=== PATIENT | female | born 1980 | race Hispanic/Latino ===

== ENCOUNTER 2017-01-17 02:05 | Emergency (ER) | payer OTHER ==
[~2017-01-17] VITALS: Ht 160 cm; Wt 95.3 kg
[~2017-01-17 02:05] MED LIST: AFRIN PUMPMIST15 ML NASB; ALBUTEROL1.25 MG/3 INH; METFORMIN HCL500 MG PO; NASONEX0.05 MG/Ac NASB; Nebulizer machine; PREDNISONE 20MG20 MG PO; ROBITUSSIN W/CO10 ML PO; TESSALON PERLE100 MG PO; ZOFRAN ODT4 MG SL; [UNRECOGNIZED DRUG - CODE] SC
[2017-01-17 02:47] LABS: ABSOLUTE BASOPHIL COUNT 0.1 /CUMM (0.0-0.2); ABSOLUTE EOSINOPHIL COUNT 0.3 /CUMM (0.0-0.7); ABSOLUTE GRANULOCYTE CT 4.9 /CUMM (1.4-6.5); ABSOLUTE LYMPH COUNT 1.7 /CUMM (1.2-3.4); ABSOLUTE MONOCYTE COUNT 0.5 /CUMM (0.10-0.60); BASOPHIL % 1.1 % (0.0-2.0); EOSINOPHIL % 4.1 % (0-5); GRANULOCYTE % 65.6 % (42.2-75.2); HEMATOCRIT 35.7 % (37-47); MEAN CORPUSCULAR HGB 26.8 PG (27.0-31.0); MEAN CORPUSCULAR HGB CONC 33.1 G/DL (33.0-37.0); MEAN PLATELET VOLUME 8.6 FL (7.4-10.4); PLATELET COUNT 228 /CUMM (130-400); RBC DISTRIBUTION WIDTH 14.5 % (11.5-14.5); RED BLOOD CELL CT 4.41 /CUMM (4.20-5.40); WHITE BLOOD CELL COUNT 7.4 /CUMM (4.8-10.8)
[2017-01-17] MEDS ORDERED: CIPRODEX OTIC7.5 ML OT (02:47)
[2017-01-17] MEDS ORDERED: CIPROFLOXACIN500 M2 PO (02:47)
[2017-01-17] MEDS ORDERED: DICYCLOMINE HCL20 M1 PO (02:48)
[2017-01-17] MEDS ORDERED: LISINOPRIL5 M1 PO (02:48)
[2017-01-17] MEDS ORDERED: PANTOPRAZOLE SO40 M1 PO (02:49)
[2017-01-17] MEDS ORDERED: LYRICA100 M1 PO (02:50)
--- NOTE | 2017-01-17 03:04 | ED DYSPNEA/ASTHMA COMPLAINT ---
History of Present Illness General Chief Complaint: Dyspnea (COPD, CHF, Other) Stated Complaint: DIFF [id number]% ON RM AIR AT [employer] Source: patient, family, old records Exam Limitations: no limitations Vital Signs & Intake/Output Vital Signs & Intake/Output Vital Signs Date Time Temp Pulse Resp B/P Pulse O2 O2 Flow FiO2 Ox Delivery Rate 01/17 0237 99 Room Air 01/17 0213 98.1 128 18 148/85 99 Room Air Allergies Coded Allergies: latex (Severe, HIVES 01/17/17) insulin glargine (From Lantus) (UNKNOWN 01/17/17) Reconcile Medications Albuterol Sulfate (Albuterol Sulfate Nebulizer Soln) 1.25 MG/3 ML CHARY 1 UNIT INH Q4P PRN shortness of breath Benzonatate (Tessalon Perle) 100 MG SGL 1 CAP PO TID PRN COUGH Ciprofloxacin HCl 500 MG TABLET 1 TAB PO BID INFECTION (Reported) Ciprofloxacin HCl/Dexameth (Ciprodex Otic Suspension) 0.3 %-0.1 % DROPS.SUSP 4 GTT OT BID INFECTION (Reported) Dicyclomine HCl 20 MG TABLET 0.5 TAB PO TID ACID REFLUX (Reported) Humulin 70-30 (Humulin 70-30 Vial) 100 UNIT/ML (70-30) VIAL 30 UNITS SC BID DIABETES (Reported) Lisinopril 5 MG TABLET 1 TAB PO DAILY HEART HEALTH (Reported) Metformin Hydrochloride (Metformin HCl) 500 MG TAB 1 TAB PO BID DIABETES ( Reported) Mometasone Furoate (Nasonex) 0.05 MG/Actuation SPR 2 SPRAY NASB DAILY allergy [Nebulizer machine] Use as directed Ondansetron (Zofran Odt) 4 MG TAB.RAPDIS 1 TAB SL Q8HR PRN NAUSEA OXYMETAZOLINE HCL (Afrin) 15 ML SPR 2 SPRAY NASB BID sinusitis Use for 3 days Pantoprazole Sodium 40 MG TABLET.DR 1 TAB PO DAILY ACID REFLUX (Reported) Prednisone 20 MG TAB 1 TAB PO BID BRONCHOSPASM Pregabalin (Lyrica) 100 MG CAPSULE 1 CAP PO BID PAIN (Reported) Robitussin AC (Guaifenesin-Codeine Syrup) 200 MG-20 MG/10 ML LIQUID 10 ML PO Q6HR PRN COUGH Triage Note: PT TO ED C/O DIFF BREATHING AND UNPRODUCTIVE COUGH SINCE YESTERDAY. O2 SAT 99% ON RA. LUNGS CTA. DR MONTENEGRO IN TO EVAL PT ON PATIENT ARRIVAL TO ROOM. RR 26. TACHY AT 128. PT VERY ANXIOUS. Triage Nurses Notes Reviewed? yes Onset: yesterday Duration: day(s):, constant, continues in ED Timing: recent history Severity: moderate Activities at Onset: rest Prior Episodes/Possible Cause: illness exposure Modifying Factors: Improves With: rest. Worsens With: movement. Associated Symptoms: anxiety, cough, weakness LMP (ages 10-50): unknown : No Patient currently breastfeeds: No HPI: 1 week Prior to admission patient was treated for ear infection with amoxicillin and switched to Zithromax. 1 day prior to admission patient complains of progressive nonproductive cough shortness of breath weakness with chest tightness. She denies fever chills nausea vomiting diarrhea abdominal pain headache dysuria rash bleeding. Past History Travel History Traveled to [place] past 21 day No Medical History Any Pertinent Medical History? see below for history Respiratory: asthma Endocrine: diabetes Surgical History Surgical History: non-contributory Psychosocial History What is your primary language Azeri Tobacco Use: Never used Family History Hx Contributory? No Review of Systems Review of Systems Constitutional: Reports: see HPI, malaise, weakness. EENTM: Reports: see HPI, ear pain. Respiratory: Reports: see HPI, cough, short of breath, wheezing. Cardiovascular: Reports: see HPI, chest pain. GI: Reports: no symptoms. Genitourinary: Reports: no symptoms. Musculoskeletal: Reports: no symptoms. Skin: Reports: no symptoms. Neurological/Psychological: Reports: no symptoms. Hematologic/Endocrine: Reports: no symptoms. Immunologic/Allergic: Reports: no symptoms. All Other Systems: Reviewed and Negative Physical Exam Physical Exam General Appearance: well developed/nourished, alert, awake, anxious, moderate distress, obese Head: atraumatic, normal appearance Eyes: Bilateral: normal appearance, PERRL, EOMI. Ears, Nose, Throat: normal pharynx, normal ENT inspection Neck: normal inspection, supple, full range of motion Respiratory: chest non-tender, quiet respiration, decreased breath sounds, respiratory distress Cardiovascular: regular rate/rhythm, normal peripheral pulses, norml femoral pulses equa Peripheral Pulses: 4+ carotid (R), 4+ carotid (L) Gastrointestinal: normal bowel sounds, soft, non-tender, no organomegaly Extremities: normal inspection, normal capillary refill, normal range of motion, no edema Neurologic/Psych: no motor/sensory deficits, awake, alert, oriented x 3, normal gait, striker out II-XII nml as tested Skin: intact, normal color, warm/dry Lymphatic: no anterior cervical shahzad Core Measures ACS in differential dx? No Severe Sepsis Present: No Septic Shock Present: No Progress Differential Diagnosis: asthma, bronchitis, COPD, pneumonia Plan of Care: Orders Procedure Date/time Status URINALYSIS 01/18 316 Complete Add-on Test (ER Only) 01/17 237 Active Add-on Test (ER Only) 01/18 236 Active D-DIMER 01/17 226 Complete EKG 01/17 226 Active COMPREHENSIVE METABOLIC PANEL 01/17 217 Complete CBC WITHOUT DIFFERENTIAL 01/17 217 Complete ACETONE 01/17 217 Complete TROPONIN LEVEL 01/17 215 Complete HUMAN BETA HCG SCREEN 01/17 215 Complete Laboratory Tests 01/17/17309: Urine Color STRAW, Urine Clarity CLEAR, Urine pH 7.5, Ur Specific [place] 1.015, Urine Protein NEG, Urine Ketones NEG, Urine Nitrite NEG, Urine Bilirubin NEG, Urine Urobilinogen 0.2, Ur Leukocyte Esterase NEG, Ur Microscopic EXAM NOT REQUIRED, Urine Hemoglobin NEG, Urine Glucose >=1000 H 01/17/17225: Troponin I Cancelled 01/17/17214: Anion Gap 12, Estimated GFR > 60, BUN/Creatinine Ratio 8.8, Glucose 240 H, Calcium 9.5, Total Bilirubin 0.5, AST 19, ALT 34, Alkaline Phosphatase 80, Troponin I < 0.01, Total Protein 7.3, Albumin 4.1, Globulin 3.2, Albumin/ Globulin Ratio 1.3, Total Beta HCG NEGATIVE, D-Dimer < 200, CBC w Diff NO MAN DIFF REQ, RBC 4.41, MCV 81.0, MCH 26.8 L, RDW 14.5, MPV 8.6, Gran % 65.6, Lymphocytes % 22.7, Monocytes % 6.5, Eosinophils % 4.1, Basophils % 1.1, Absolute Granulocytes 4.9, Absolute Lymphocytes 1.7, Absolute Monocytes 0.5, Absolute Eosinophils 0.3, Absolute Basophils 0.1, PUBS MCHC 33.1, Acetone Level NEGATIVE Diagnostic Imaging: Viewed by Me: Radiology Read. Discussed w/RAD: Radiology Read. Initial ED EKG: normal axis, normal intervals, normal p-waves, normal QRS complex, normal sinus rhythm, nonspecific ST T wave chg Rhythm Strip: sinus tachycardia Departure Departure Time of Disposition: 419 Disposition: HOME OR SELF CARE Condition: Stable Clinical Impression Primary Impression: Asthmatic bronchitis with acute exacerbation Referrals: KISHAN SINGH DO (PCP/Family) Departure Forms: Customer Survey General Discharge Information Prescriptions: Current Visit Scripts Prednisone 1 TAB PO BID #10 TAB Oxymetazoline HCl (Afrin) 2 SPRAY NASB BID #30 ML Benzonatate (Tessalon Perle) 1 CAP PO TID PRN cough #21 CAP Albuterol Sulfate 1 Vial INH/CHARY Q4P PRN wheezing #50 Vial Ref 5 Albuterol Sulfate (Proair Hfa) 2-4 PUF INH Q4-6 PRN PRN shortness of breath #1 INHAL Critical Care Note Critical Care Note Critical Care Time: non-applicable
--- NOTE | 2017-01-17 04:15 | RADIOLOGY REPORT ---
EXAMINATION: XR PORTABLE CHEST CLINICAL INFORMATION: Cough and shortness of breath. COMPARISON: Chest radiograph 03/07/2015. TECHNIQUE: Portable AP view of the chest was obtained. FINDINGS: Lung volumes are low. There is no focal consolidative disease, pleural effusion, or pneumothorax. The cardiac silhouette and upper mediastinal contours are normal. No acute osseous finding. IMPRESSION: Low lung volumes. Otherwise unremarkable examination with no evidence of consolidative disease or effusion.
[2017-01-17] MEDS ORDERED: ALBUTEROL2.5 MG/3 M INH/SOL (04:27)
[2017-01-17] MEDS ORDERED: AFRIN30 ML NASB (04:27)
[2017-01-17] MEDS ORDERED: TESSALON PERLE100 M1 PO (04:27)
[2017-01-17] MEDS ORDERED: PROAIR HFA8.5 GM INH (04:27)
[2017-01-17] MEDS ORDERED: PREDNISONE20 M1 PO (04:27)
[2017-01-17 04:40] VITALS: BP 133/80
== END 2017-01-17 04:46 ==
LOC: ERH 02:05
PROVIDERS: Emergency Medicine
DX: J45.901 Unspecified asthma with (acute) exacerbation (principal); R07.89 Other chest pain; R53.1 Weakness; E11.9 Type 2 diabetes mellitus without complications; Z79.4 Long term (current) use of insulin
CPT/HCPCS: 1263; 81003; 93005; 93010; 96361; 96374; J2930

== ENCOUNTER → 2017-04-15 | Day surgery (SDC) | payer OTHER ==
[~2017-04-15] VITALS: Ht 160 cm; Wt 104.3 kg
[~2017-04-15] MED LIST changes: +AFRIN30 ML NASB; +ALBUTEROL2.5 MG/3 M INH/SOL; +CIPRODEX OTIC7.5 ML OT; +CIPROFLOXACIN500 M2 PO; +DICYCLOMINE HCL20 M1 PO; +LISINOPRIL5 M1 PO; +LYRICA100 M1 PO; +PANTOPRAZOLE SO40 M1 PO; +PREDNISONE20 M1 PO; +PROAIR HFA8.5 GM INH; +TESSALON PERLE100 M1 PO
--- NOTE | 2017-04-15 10:18 | Operative Report ---
Operative/Inv Procedure Report Surgery Date: 04/15/17 Name of Procedure: Tunnel release left Pre-Operative Diagnosis: Tunnel syndrome left Post-Operative Diagnosis: Same Estimated Blood Loss: scant Surgeon/Thread Roller: YARY LANE MD Anesthesia: moderate sedation Operative/Procedure Note Note: The patient was counseled in regards to the procedure the alternatives the risks and expected outcomes as it relates to her request for surgical intervention to treat symptomatic left-sided carpal tunnel syndrome. We talked about infection bleeding pain neuroma injury to surrounding structures including the nerve which could result in permanent numbness and loss of function of the hand as well as sensitive palm sensitive scar failure to achieve desired results. She agreed to the risks as they were discussed and signed informed consent. She was brought to the operating placed supine on table intravenous sedation antibiotics were given in the left hand was prepped and draped in usual sterile fashion. Palmar longitudinal incision was placed the skin and subcutaneous tissue and palmar fascia. Transverse carpal ligament was opened under direct vision and no other pathology was seen. Was closed with single layer of sutures and a splint.
== END ==
LOC: STS 01:01
DX: G56.02 Carpal tunnel syndrome, left upper limb (principal); I10 Essential (primary) hypertension; E11.9 Type 2 diabetes mellitus without complications; Z79.4 Long term (current) use of insulin; Z68.41 Body mass index [BMI] 40.0-44.9, adult; F17.200 Nicotine dependence, unspecified, uncomplicated
CPT/HCPCS: 81025; J0690; J2250